=== PATIENT | male | born 1950 | race Caucasian/White ===

== ENCOUNTER 2017-08-05 23:36 | Emergency (ER) | payer OTHER ==
[~2017-08-05] VITALS: Ht 182.9 cm; Wt 127.0 kg
[~2017-08-05 23:36] MED LIST: ASPIR 8181 MG PO; B COMPLEX & B121 TAB PO; CALCIUM 600 PLU1 TAB PO; CLEOCIN HCL300 MG PO; COUMADIN5 MG PO; IRON PO; LAC PO; LASIX20 MG PO; LEVAQUIN750 MG PO; LIPITOR40 MG PO; MASON NATURAL1200 MG PO; NIASPAN500 MG PO; PANTOPRAZOLE SO20 M1 PO; PHARMASSURE MA500 MG PO; POTASSIUM CHLO10 MEQ PO
[2017-08-06 00:01] VITALS: Ht 182.9 cm; Wt 127.0 kg
[2017-08-06 03:17] VITALS: BP 132/71
== END 2017-08-06 03:17 | disposition home or self-care (01) ==
LOC: ED 23:36
DX: R04.0 Epistaxis (principal); I10 Essential (primary) hypertension; E11.9 Type 2 diabetes mellitus without complications; E78.00 Pure hypercholesterolemia, unspecified; Z79.01 Long term (current) use of anticoagulants

== ENCOUNTER 2018-06-27 16:58 | Emergency (ER) | payer OTHER ==
[~2018-06-27] VITALS: Ht 182.9 cm; Wt 123.4 kg
[2018-06-27 17:14] VITALS: Ht 182.9 cm; Wt 123.4 kg
[2018-06-27 18:46] LABS: BASOPHIL % 0.7 % (0-2); PLATELET COUNT 230 x10^3mcL (130-400)
[2018-06-27 18:47] LABS: RED CELL DISTRIBUTION WIDTH 18.2 % (11.5-14.5)
[2018-06-27 19:38] VITALS: BP 133/60
== END 2018-06-27 19:38 | disposition home or self-care (01) ==
LOC: ED 16:58
PROVIDERS: Emergency Medicine
DX: H11.31 Conjunctival hemorrhage, right eye (principal); I50.9 Heart failure, unspecified
CPT/HCPCS: 36415

== ENCOUNTER 2019-05-13 14:33 | Emergency (ER) | payer OTHER ==
[~2019-05-13] VITALS: Ht 180.3 cm; Wt 121.6 kg
[2019-05-13 14:46] VITALS: Ht 180.3 cm; Wt 121.6 kg
[2019-05-13 16:49] LABS: BASOPHIL % 0.3 % (0-2); PLATELET COUNT 239 x10^3mcL (130-400)
[2019-05-13 16:50] LABS: CALCIUM 8.8 mg/dL (8.5-10.1); CARBON DIOXIDE 30.2 mmol/L (21-32); CHLORIDE SERUM 102 mmol/L (98-107); CREATININE SERUM 1.2 mg/dL (0.7-1.3); GFR1 > 60 mL/min; GLUCOSE SERUM 159 mg/dL (74-106); SODIUM SERUM 139 mmol/L (136-145)
[2019-05-13 16:55] LABS: ALBUMIN 3.9 g/dL (3.4-5.0); ALKALINE PHOSPHATASE 84 U/L (46-116); ALT/SGPT 55 U/L (16-63); AST/SGOT 29 U/L (15-37); BILIRUBIN TOTAL 0.8 mg/dL (0.20-1.00)
[2019-05-13 20:28] VITALS: BP 143/71
== END 2019-05-13 20:28 | disposition home or self-care (01) ==
LOC: ED 14:33
PROVIDERS: Emergency Medicine
DX: N20.0 Calculus of kidney (principal); I11.0 Hypertensive heart disease with heart failure; I50.9 Heart failure, unspecified; I48.91 Unspecified atrial fibrillation
CPT/HCPCS: J1885; J7030